=== PATIENT | male | born 1945 | race Caucasian/White ===

== ENCOUNTER 2021-05-07 14:05 | Outpatient (REF) | payer MEDICARE, SELFPAY ==
[2021-05-07 14:23] LABS: Binax Internal Control QC Valid; Binax Now Covid-19 Ag Negative (Negative)
== END 2021-05-07 14:06 | disposition home or self-care (01) ==
LOC: HO.LAB 14:05
PROVIDERS: PCP Internal Medicine; Visit Provider Internal Medicine
DX: Z13.89 Encounter for screening for other disorder (principal)